=== PATIENT | female | born 2000 | race Caucasian/White ===

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

== ENCOUNTER 2022-01-19 00:01 | Emergency (ER) | payer OTHER ==
[~2022-01-19] VITALS: Ht 160 cm; Wt 81.8 kg
[2022-01-19 00:30] LABS: BASO # 0.1 10^3/uL (0.0-0.2); BASO % 0.4 % (0.0-1.0); EOS # 0.1 10^3/uL (0.0-0.5); EOS % 0.6 % (0.0-3.0); HEMATOCRIT 40.7 % (36.0-47.0); HEMOGLOBIN 13.7 g/dl (12.0-15.5); LYMPH # 3.9 10^3/uL (1.5-5.0); LYMPH % 29.8 % (24.0-44.0); MEAN CORPUSCULAR HEMOGLOBIN 31.3 pg (27.0-33.0); MEAN CORPUSCULAR HGB CONC 33.7 g/dl (32.0-36.5); MEAN CORPUSCULAR VOLUME 92.9 fl (80.0-96.0); MONO % 7.4 % (2.0-8.0); NEUTROPHILS % 61.6 % (36.0-66.0); PLATELET COUNT, AUTOMATED 277 10^3/uL (150-450); RED BLOOD COUNT 4.38 10^6/uL (4.00-5.40); WHITE BLOOD COUNT 12.9 10^3/uL (4.0-10.0)
[2022-01-19 00:59] LABS: BLOOD UREA NITROGEN 10 MG/DL (7-18); CALCIUM LEVEL 9.2 MG/DL (8.5-10.1); CARBON DIOXIDE LEVEL 27 MEQ/L (21-32); CHLORIDE LEVEL 105 MEQ/L (98-107); CREATININE FOR GFR 0.64 MG/DL (0.55-1.30); GLUCOSE, FASTING 95 MG/DL (70-100); POTASSIUM SERUM 4.2 MEQ/L (3.5-5.1); SODIUM LEVEL 137 MEQ/L (136-145)
[2022-01-19 01:12] LABS: HCG, SERUM QUALITATIVE NEGATIVE (NEGATIVE)
[2022-01-19 05:02] VITALS: BP 125/76
== END 2022-01-19 05:14 | disposition home or self-care (01) ==
LOC: M ED 00:01
DX: N83.202 Unspecified ovarian cyst, left side (principal)

== ENCOUNTER → 2022-03-03 | Outpatient (REF) | payer OTHER | LOC: M WUC 20:07 | PROVIDERS: ATTEND Physician Assistant | DX: R30.0 Dysuria (principal) ==

== ENCOUNTER → 2022-03-16 | Outpatient (CLI) | payer OTHER | LOC: M WUC 08:40 | DX: M79.641 Pain in right hand (principal) ==

== ENCOUNTER 2022-03-30 02:07 | Emergency (ER) | payer OTHER | END 2022-03-30 04:02 | disposition left against medical advice (07) | LOC: M ED 02:07 | DX: Z53.29 Procedure and treatment not carried out because of patient's decision for other reasons (principal) ==

== ENCOUNTER 2022-05-07 18:26 | Emergency (ER) | payer OTHER ==
[~2022-05-07] VITALS: Ht 160 cm; Wt 76.8 kg
[2022-05-07] MEDS ORDERED: AMOX875T2 (18:31)
[2022-05-07] MEDS ORDERED: KETOROLAC 30 MG/ML 1ML VIAL IV ONE (19:05)
[2022-05-07] MEDS ORDERED: NS 1,000 ML IV ONE (19:05)
[2022-05-07 19:25] LABS: BASO % 0.3 % (0.0-1.0); EOS # 0.1 10^3/uL (0.0-0.5); EOS % 0.6 % (0.0-3.0); HEMOGLOBIN 13.5 g/dl (12.0-15.5); LYMPH # 2.8 10^3/uL (1.5-5.0); LYMPH % 24.2 % (24.0-44.0); MEAN CORPUSCULAR HEMOGLOBIN 31.4 pg (27.0-33.0); MEAN CORPUSCULAR HGB CONC 33.8 g/dl (32.0-36.5); MONO % 8.7 % (2.0-8.0); NEUTROPHILS # 7.5 10^3/uL (1.5-8.5); NEUTROPHILS % 65.9 % (36.0-66.0); PLATELET COUNT, AUTOMATED 289 10^3/uL (150-450); WHITE BLOOD COUNT 11.4 10^3/uL (4.0-10.0)
[2022-05-07 20:01] LABS: BILIRUBIN,DIRECT 0.2 MG/DL (0.0-0.2); BILIRUBIN,TOTAL 0.8 MG/DL (0.2-1.0); TOTAL PROTEIN 7.9 GM/DL (6.4-8.2)
[2022-05-07 22:13] VITALS: BP 114/86
== END 2022-05-07 22:15 | disposition home or self-care (01) ==
LOC: M ED 18:26
DX: N83.202 Unspecified ovarian cyst, left side (principal)
CPT/HCPCS: 74176; 80047; 80076; 81001; 83690; 84702; 85025; 96361; 96374; 99284; J1885

== ENCOUNTER 2022-05-20 00:19 | Emergency (ER) | payer OTHER ==
[~2022-05-20] VITALS: Ht 160 cm; Wt 81.8 kg
[~2022-05-20 00:19] MED LIST changes: +AMOX875T2
[2022-05-20 00:20] VITALS: BP 137/95
== END 2022-05-20 01:20 | disposition left against medical advice (07) ==
LOC: M ED 00:19
DX: Z53.29 Procedure and treatment not carried out because of patient's decision for other reasons (principal)

== ENCOUNTER → 2022-06-29 | Outpatient (CLI) | payer OTHER | LOC: M WHC 13:55 | PROVIDERS: ATTEND Nurse Practitioner Family | DX: N83.202 Unspecified ovarian cyst, left side (principal) ==

== ENCOUNTER 2022-07-01 11:26 | Emergency (ER) | payer OTHER ==
[~2022-07-01] VITALS: Ht 160 cm; Wt 79.5 kg
[2022-07-01 16:26] VITALS: BP 133/75
== END 2022-07-01 16:26 | disposition home or self-care (01) ==
LOC: M ED 11:26
DX: R10.9 Unspecified abdominal pain (principal); Z79.899 Other long term (current) drug therapy; Z87.42 Personal history of other diseases of the female genital tract

== ENCOUNTER 2022-07-03 23:16 | Emergency (ER) | payer OTHER ==
[~2022-07-03] VITALS: Ht 160 cm; Wt 78.6 kg
[2022-07-03] MEDS ORDERED: birth control PO (23:36)
[2022-07-04] MEDS ORDERED: NS 1,000 ML IV ONE (03:30)
[2022-07-04 04:00] VITALS: BP 136/94
[2022-07-04] MEDS ORDERED: HOLTER MONITOR XX (04:48)
[2022-07-04] MEDS ORDERED: ONDA4TAB6 PO (04:48)
== END 2022-07-04 05:11 | disposition home or self-care (01) ==
LOC: M ED 23:16
DX: A08.4 Viral intestinal infection, unspecified (principal); R00.2 Palpitations; Z79.3 Long term (current) use of hormonal contraceptives

== ENCOUNTER → 2022-07-04 | Outpatient (CLI) | payer OTHER ==
[~2022-07-04] MED LIST changes: +HOLTER MONITOR XX; +ONDA4TAB6 PO; +birth control PO
== END ==
LOC: M EKG 16:01 → M LAB 16:01
PROVIDERS: ATTEND Emergency Medicine
DX: R00.2 Palpitations (principal)

== ENCOUNTER → 2022-07-30 | Outpatient (REF) | payer OTHER | LOC: M LAB REF 18:45 | PROVIDERS: ATTEND Internal Medicine | DX: J02.9 Acute pharyngitis, unspecified (principal) ==

== ENCOUNTER 2022-08-01 21:29 | Emergency (ER) | payer OTHER ==
[~2022-08-01] VITALS: Ht 160 cm; Wt 75.0 kg
[2022-08-01 21:30] VITALS: BP 145/87
== END 2022-08-02 00:40 | disposition left against medical advice (07) ==
LOC: M ED 21:29
DX: Z53.21 Procedure and treatment not carried out due to patient leaving prior to being seen by health care provider (principal)

== ENCOUNTER → 2022-08-17 | Outpatient (CLI) | payer OTHER ==
[2022-08-17 20:14] LABS: FREE T4 0.9 NG/DL (0.78-1.33); THYROID STIMULATING HORMONE 0.746 uIU/ML (0.463-3.98)
[2022-08-17 20:38] LABS: HEMOGLOBIN A1c 5.2 %
[2022-08-17 21:02] LABS: PROLACTIN 11.7 NG/ML
== END ==
LOC: M PLALAB 13:57
PROVIDERS: ATTEND Nurse Practitioner Family
DX: N93.9 Abnormal uterine and vaginal bleeding, unspecified (principal)

== ENCOUNTER 2022-09-12 23:22 | Emergency (ER) | payer OTHER ==
[~2022-09-12] VITALS: Ht 160 cm; Wt 75.0 kg
[2022-09-13] MEDS ORDERED: OMEP40CA4 PO (00:03)
[2022-09-13] MEDS ORDERED: MULT1TAB16 PO (00:03)
[2022-09-13 00:45] LABS: APPEARANCE, URINE MANUAL HAZY (CLEAR); BILIRUBIN, URINE MANUAL NEGATIVE (NEGATIVE); COLOR, URINE MANUAL YELLOW (YELLOW); GLUCOSE, URINE (UA) MANUAL NEGATIVE (NEGATIVE); KETONE, URINE MANUAL 1+ mg/dL (NEGATIVE); LEUKOCYTE ESTERASE, URINE MAN POSITIVE (NEGATIVE); NITRITE, URINE MANUAL NEGATIVE (NEGATIVE); PROTEIN, URINE MANUAL NEGATIVE (NEGATIVE); SPECIFIC GRAVITY,URINE MANUAL 1.025 (1.002-1.035); UROBILINOGEN, URINE MANUAL NORMAL (NORMAL)
[2022-09-13 00:46] LABS: BLOOD URINE MANUAL NEGATIVE (NEGATIVE)
[2022-09-13 00:56] LABS: WBC, URINE 15-20 /hpf (0-3)
[2022-09-13 00:57] LABS: BACTERIA, URINE SMALL AMOUNT; HYALINE CAST, URINE NONE SEEN /lpf (0-1); MUCUS, URINE MOD AMOUNT (NEGATIVE); SQUAMOUS EPITHELIAL CELL URINE MOD AMOUNT /hpf (SMALL AMT)
[2022-09-13 08:12] LABS: BASO # 0.1 10^3/uL (0.0-0.2); BASO % 0.5 % (0.0-1.0); EOS % 0.3 % (0.0-3.0); HEMATOCRIT 39.3 % (36.0-47.0); LYMPH # 3.5 10^3/uL (1.5-5.0); LYMPH % 28.8 % (24.0-44.0); MEAN CORPUSCULAR HEMOGLOBIN 30.6 pg (27.0-33.0); MEAN CORPUSCULAR HGB CONC 33.1 g/dl (32.0-36.5); MEAN CORPUSCULAR VOLUME 92.5 fl (80.0-96.0); MONO # 1.2 10^3/uL (0.0-0.8); MONO % 9.3 % (2.0-8.0); NEUTROPHILS # 7.5 10^3/uL (1.5-8.5); NEUTROPHILS % 60.9 % (36.0-66.0); PLATELET COUNT, AUTOMATED 270 10^3/uL (150-450); RED BLOOD COUNT 4.25 10^6/uL (4.00-5.40); WHITE BLOOD COUNT 12.3 10^3/uL (4.0-10.0)
[2022-09-13] MEDS ORDERED: cefTRIAXone SOD 1 GM in D5W MINI-BAG PLUS 50 ML IV ONE (08:25)
[2022-09-13 08:36] LABS: CHLORIDE LEVEL 105 MMOL/L (98-107); SODIUM LEVEL 141 MMOL/L (136-145)
[2022-09-13 08:37] LABS: ALBUMIN 4.1 G/DL (3.2-5.2)
[2022-09-13 08:42] LABS: BLOOD UREA NITROGEN 12 MG/DL (9-23); LIPASE 39 U/L (12-53)
[2022-09-13 08:43] LABS: ALKALINE PHOSPHATASE 77 U/L (46-116); CALCIUM LEVEL 9.3 MG/DL (8.5-10.1); GLUCOSE, FASTING 86 MG/DL (60-100)
[2022-09-13 08:44] LABS: ALT/SGPT 41 U/L (7.0-40); AST/SGOT 25 U/L (<34); BILIRUBIN,TOTAL 1.1 MG/DL (0.3-1.2); TOTAL PROTEIN 7.5 G/DL (5.7-8.2)
[2022-09-13 08:45] LABS: BILIRUBIN,DIRECT 0.4 MG/DL (<0.4); CREATININE FOR GFR 0.59 MG/DL (0.55-1.30)
[2022-09-13] MEDS ORDERED: ISOVUE-370 76% 100ML VIAL As Ordered ONE (08:55)
[2022-09-13 08:58] LABS: CARBON DIOXIDE LEVEL 25 MMOL/L (20-31); POTASSIUM SERUM 3.8 MMOL/L (3.5-5.1)
[2022-09-13 10:07] VITALS: BP 118/75
[2022-09-13] MEDS ORDERED: SULF1TAB23 PO (10:51)
== END 2022-09-13 11:17 | disposition home or self-care (01) ==
LOC: M ED 23:22
DX: N10 Acute pyelonephritis (principal); N39.0 Urinary tract infection, site not specified; E66.9 Obesity, unspecified; K21.9 Gastro-esophageal reflux disease without esophagitis; Z79.3 Long term (current) use of hormonal contraceptives
CPT/HCPCS: 74177; 80048; 80076; 81000; 81015; 83690; 84702; 85025; 96365; 96366; 99284; J0696

== ENCOUNTER 2022-09-24 13:00 | Emergency (ER) | payer OTHER ==
[~2022-09-24] VITALS: Ht 160 cm; Wt 72.0 kg
[~2022-09-24 13:00] MED LIST changes: +MULT1TAB16 PO; +OMEP40CA4 PO; +SULF1TAB23 PO
[2022-09-24 14:56] LABS: BASO % 0.2 % (0.0-1.0); EOS % 0.2 % (0.0-3.0); HEMOGLOBIN 13.2 g/dl (12.0-15.5); LYMPH # 2.7 10^3/uL (1.5-5.0); LYMPH % 21.6 % (24.0-44.0); MEAN CORPUSCULAR HEMOGLOBIN 30.4 pg (27.0-33.0); MEAN CORPUSCULAR VOLUME 92.2 fl (80.0-96.0); MONO # 0.8 10^3/uL (0.0-0.8); MONO % 6.4 % (2.0-8.0); NEUTROPHILS # 8.8 10^3/uL (1.5-8.5); NEUTROPHILS % 71.4 % (36.0-66.0); PLATELET COUNT, AUTOMATED 281 10^3/uL (150-450); RED BLOOD COUNT 4.34 10^6/uL (4.00-5.40); WHITE BLOOD COUNT 12.3 10^3/uL (4.0-10.0)
[2022-09-24 15:19] LABS: ALBUMIN 3.8 G/DL (3.2-5.2); BILIRUBIN,DIRECT 0.4 MG/DL (<0.4); TOTAL PROTEIN 7.3 G/DL (5.7-8.2)
[2022-09-24] MEDS ORDERED: ACETAMINOPHEN 325 MG TAB PO ONE (16:20)
[2022-09-24] MEDS ORDERED: NS 1,000 ML IV ONE (17:15)
[2022-09-24] MEDS ORDERED: ISOVUE-370 76% 100ML VIAL As Ordered ONE (17:17)
[2022-09-24] MEDS ORDERED: KETOROLAC 30 MG/ML 1ML VIAL IV ONE (19:00)
[2022-09-24 19:14] VITALS: BP 124/59
== END 2022-09-24 19:30 | disposition home or self-care (01) ==
LOC: M ED 13:00
DX: N83.291 Other ovarian cyst, right side (principal); Z79.3 Long term (current) use of hormonal contraceptives
CPT/HCPCS: 74177; 76830; 76856; 80047; 80076; 84702; 85025; 93976; 96361; 96374; 99284; J1885

== ENCOUNTER → 2022-09-28 | Outpatient (CLI) | payer OTHER | LOC: M WHC 14:35 | PROVIDERS: ATTEND Physician Assistant | DX: N83.202 Unspecified ovarian cyst, left side (principal) ==

== ENCOUNTER 2022-10-18 22:15 | Emergency (ER) | payer OTHER ==
[~2022-10-18] VITALS: Ht 160 cm; Wt 72.2 kg
[2022-10-19 02:25] VITALS: BP 121/63
== END 2022-10-19 02:28 | disposition home or self-care (01) ==
LOC: M ED 22:15
DX: S09.90XA Unspecified injury of head, initial encounter (principal); W22.8XXA Striking against or struck by other objects, initial encounter; Y92.019 Unspecified place in single-family (private) house as the place of occurrence of the external cause

== ENCOUNTER 2022-10-21 22:24 | Emergency (ER) | payer OTHER ==
[~2022-10-21] VITALS: Ht 160 cm; Wt 71.1 kg
[2022-10-22] MEDS ORDERED: ACETAMINOPHEN 500 MG TAB PO ONE (00:40)
[2022-10-22 02:10] VITALS: BP 119/68
[2022-10-22 04:06] LABS: RSV AMPLIFICATION NEGATIVE (NEGATIVE)
== END 2022-10-22 04:57 | disposition home or self-care (01) ==
LOC: M ED 22:24
DX: J06.9 Acute upper respiratory infection, unspecified (principal); R05.9 Cough, unspecified

== ENCOUNTER 2022-11-04 16:13 | Emergency (ER) | payer OTHER ==
[~2022-11-04] VITALS: Ht 160 cm; Wt 71.9 kg
[2022-11-04 18:56] LABS: BASO % 0.3 % (0.0-1.0); EOS % 0.3 % (0.0-3.0); HEMATOCRIT 39.1 % (36.0-47.0); HEMOGLOBIN 12.7 g/dl (12.0-15.5); LYMPH # 3.2 10^3/uL (1.5-5.0); LYMPH % 26.9 % (24.0-44.0); MEAN CORPUSCULAR HEMOGLOBIN 29.7 pg (27.0-33.0); MEAN CORPUSCULAR HGB CONC 32.5 g/dl (32.0-36.5); MEAN CORPUSCULAR VOLUME 91.6 fl (80.0-96.0); MONO # 0.6 10^3/uL (0.0-0.8); MONO % 5.2 % (2.0-8.0); NEUTROPHILS # 7.8 10^3/uL (1.5-8.5); PLATELET COUNT, AUTOMATED 348 10^3/uL (150-450); RED BLOOD COUNT 4.27 10^6/uL (4.00-5.40); WHITE BLOOD COUNT 11.7 10^3/uL (4.0-10.0)
[2022-11-04 19:13] LABS: BLOOD UREA NITROGEN 15 MG/DL (9-23); CALCIUM LEVEL 9.5 MG/DL (8.5-10.1); CARBON DIOXIDE LEVEL 23 MMOL/L (20-31); CHLORIDE LEVEL 104 MMOL/L (98-107); CK-MB VALUE MASS < 1.0 NG/ML (<3.6); CPK CREATINE PHOSPHOKINASE 39 U/L (34-145); CREATININE FOR GFR 0.54 MG/DL (0.55-1.30); GLUCOSE, FASTING 88 MG/DL (60-100); MB/CK RELATIVE INDEX 2.56 (< OR =4); POTASSIUM SERUM 4.3 MMOL/L (3.5-5.1); SODIUM LEVEL 135 MMOL/L (136-145)
[2022-11-04 19:15] LABS: FREE T4 1.08 NG/DL (0.83-1.43)
[2022-11-04 19:16] LABS: INR 0.88; PROTHROMBIN TIME 12.1 SECONDS (12.5-14.5); THYROID STIMULATING HORMONE 1.944 uIU/ML (0.48-4.17)
[2022-11-04 19:17] LABS: PARTIAL THROMBOPLASTIN TIME 27.4 SECONDS (24.8-34.2)
[2022-11-04 20:16] LABS: D-DIMER QUANT < 270 ng/ml (<500)
[2022-11-04 20:34] VITALS: BP 131/66
== END 2022-11-04 20:37 | disposition home or self-care (01) ==
LOC: M ED 16:13
DX: R00.2 Palpitations (principal); E66.9 Obesity, unspecified; F41.9 Anxiety disorder, unspecified; K21.9 Gastro-esophageal reflux disease without esophagitis; Z79.3 Long term (current) use of hormonal contraceptives; Z79.899 Other long term (current) drug therapy; Z87.42 Personal history of other diseases of the female genital tract; Z90.49 Acquired absence of other specified parts of digestive tract; Z82.49 Family history of ischemic heart disease and other diseases of the circulatory system

== ENCOUNTER 2022-11-09 01:19 | Emergency (ER) | payer OTHER ==
[~2022-11-09] VITALS: Ht 160 cm; Wt 75.9 kg
[2022-11-09] MEDS ORDERED: NS 1,000 ML IV ONE (11:35)
[2022-11-09 12:15] LABS: HEMATOCRIT 39.4 % (36.0-47.0); HEMOGLOBIN 13.1 g/dl (12.0-15.5); MEAN CORPUSCULAR HGB CONC 33.2 g/dl (32.0-36.5); MEAN CORPUSCULAR VOLUME 90.4 fl (80.0-96.0); PLATELET COUNT, AUTOMATED 373 10^3/uL (150-450); RED BLOOD COUNT 4.36 10^6/uL (4.00-5.40); WHITE BLOOD COUNT 12.3 10^3/uL (4.0-10.0)
[2022-11-09 12:33] LABS: ATYPICAL LYMPH 8 % (0-5); LYMPHOCYTES 36 % (16-44); MONOCYTES 4 % (0-5); NEUTROPHILS 52 % (28-66)
[2022-11-09 12:34] LABS: ANISOCYTOSIS 1+
[2022-11-09 12:35] LABS: PLATELET ESTIMATE NORMAL (NORMAL)
[2022-11-09 12:38] LABS: FREE T4 1.26 NG/DL (0.83-1.43); THYROID STIMULATING HORMONE 1.335 uIU/ML (0.48-4.17)
[2022-11-09 12:40] LABS: RSV AMPLIFICATION NEGATIVE (NEGATIVE)
[2022-11-09 13:53] LABS: MONO SCRN NEGATIVE (NEGATIVE)
[2022-11-09] MEDS ORDERED: AMOX875T2 PO (14:33)
[2022-11-09] MEDS ORDERED: MUCI600T31 PO (14:36)
[2022-11-09 14:45] VITALS: BP 126/82
== END 2022-11-09 14:45 | disposition home or self-care (01) ==
LOC: M ED 01:19
DX: R07.89 Other chest pain (principal); J01.90 Acute sinusitis, unspecified; F41.9 Anxiety disorder, unspecified; J45.909 Unspecified asthma, uncomplicated; K21.9 Gastro-esophageal reflux disease without esophagitis; N83.209 Unspecified ovarian cyst, unspecified side; Z90.49 Acquired absence of other specified parts of digestive tract; Z82.49 Family history of ischemic heart disease and other diseases of the circulatory system; R07.9 Chest pain, unspecified; Z79.899 Other long term (current) drug therapy

== ENCOUNTER 2022-11-20 07:33 | Emergency (ER) | payer OTHER ==
[~2022-11-20] VITALS: Ht 160 cm; Wt 71.7 kg
[~2022-11-20 07:33] MED LIST changes: +AMOX875T2 PO; +MUCI600T31 PO
[2022-11-20 08:08] LABS: HEMATOCRIT 38.4 % (36.0-47.0); HEMOGLOBIN 12.5 g/dl (12.0-15.5); MEAN CORPUSCULAR HGB CONC 32.6 g/dl (32.0-36.5); MEAN CORPUSCULAR VOLUME 92.3 fl (80.0-96.0); PLATELET COUNT, AUTOMATED 293 10^3/uL (150-450); RED BLOOD COUNT 4.16 10^6/uL (4.00-5.40); WHITE BLOOD COUNT 15.5 10^3/uL (4.0-10.0)
[2022-11-20 08:34] LABS: LIPASE 64 U/L (12-53)
[2022-11-20 08:37] LABS: ALBUMIN 3.8 G/DL (3.2-5.2); ALKALINE PHOSPHATASE 91 U/L (46-116); ALT/SGPT 45 U/L (7.0-40); AST/SGOT 30 U/L (<34); BILIRUBIN,DIRECT 0.2 MG/DL (<0.4); BILIRUBIN,TOTAL 0.5 MG/DL (0.3-1.2); BLOOD UREA NITROGEN 12 MG/DL (9-23); CALCIUM LEVEL 9.3 MG/DL (8.5-10.1); CARBON DIOXIDE LEVEL 22 MMOL/L (20-31); CHLORIDE LEVEL 104 MMOL/L (98-107); CREATININE FOR GFR 0.56 MG/DL (0.55-1.30); GLUCOSE, FASTING 86 MG/DL (60-100); POTASSIUM SERUM 3.8 MMOL/L (3.5-5.1); SODIUM LEVEL 137 MMOL/L (136-145); TOTAL PROTEIN 7.5 G/DL (5.7-8.2)
[2022-11-20 08:38] LABS: ATYPICAL LYMPH 3 % (0-5); LYMPHOCYTES 27 % (16-44); MONOCYTES 6 % (0-5); NEUTROPHILS 64 % (28-66)
[2022-11-20 08:42] LABS: PLATELET ESTIMATE NORMAL (NORMAL)
[2022-11-20 08:48] LABS: HCG, SERUM QUALITATIVE NEGATIVE (NEGATIVE)
[2022-11-20] MEDS ORDERED: NS 1,000 ML IV ONE (11:25)
[2022-11-20] MEDS ORDERED: KETOROLAC 30 MG/ML 1ML VIAL IV ONE (11:25)
[2022-11-20] MEDS ORDERED: ISOVUE-370 76% 100ML VIAL As Ordered ONE (11:35)
[2022-11-20 14:40] VITALS: BP 124/76
[2022-11-20] MEDS ORDERED: IBUP80TA PO (14:40)
== END 2022-11-20 14:59 | disposition home or self-care (01) ==
LOC: M ED 07:33
DX: R10.9 Unspecified abdominal pain (principal); K76.0 Fatty (change of) liver, not elsewhere classified; N83.11 Corpus luteum cyst of right ovary; Z90.49 Acquired absence of other specified parts of digestive tract; K21.9 Gastro-esophageal reflux disease without esophagitis; F41.9 Anxiety disorder, unspecified; Z79.899 Other long term (current) drug therapy
CPT/HCPCS: 74177; 76830; 76856; 80048; 80076; 81000; 81015; 83690; 84703; 85025; 93976; 96361; 96374; 99284; J1885

== ENCOUNTER 2022-12-07 15:50 | Emergency (ER) | payer OTHER ==
[~2022-12-07] VITALS: Ht 160 cm; Wt 67.6 kg
[~2022-12-07 15:50] MED LIST changes: +IBUP80TA PO
[2022-12-07] MEDS ORDERED: ESTA0.25 (16:01)
[2022-12-07] MEDS ORDERED: TRAZ-252 (16:01)
[2022-12-07 16:53] LABS: BASO % 0.6 % (0.0-1.0); EOS # 0.1 10^3/uL (0.0-0.5); EOS % 0.9 % (0.0-3.0); HEMATOCRIT 37.6 % (36.0-47.0); HEMOGLOBIN 12.1 g/dl (12.0-15.5); LYMPH # 1.8 10^3/uL (1.5-5.0); LYMPH % 32.5 % (24.0-44.0); MEAN CORPUSCULAR HEMOGLOBIN 30.1 pg (27.0-33.0); MEAN CORPUSCULAR HGB CONC 32.2 g/dl (32.0-36.5); MEAN CORPUSCULAR VOLUME 93.5 fl (80.0-96.0); MONO # 0.6 10^3/uL (0.0-0.8); MONO % 11.6 % (2.0-8.0); NEUTROPHILS % 54.4 % (36.0-66.0); PLATELET COUNT, AUTOMATED 275 10^3/uL (150-450); RED BLOOD COUNT 4.02 10^6/uL (4.00-5.40); WHITE BLOOD COUNT 5.5 10^3/uL (4.0-10.0)
[2022-12-07 17:15] LABS: ALBUMIN 3.7 G/DL (3.2-5.2); ALKALINE PHOSPHATASE 82 U/L (46-116); CARBON DIOXIDE LEVEL 24 MMOL/L (20-31); CHLORIDE LEVEL 105 MMOL/L (98-107); POTASSIUM SERUM 3.4 MMOL/L (3.5-5.1); SODIUM LEVEL 139 MMOL/L (136-145)
[2022-12-07 17:16] LABS: LIPASE 33 U/L (12-53)
[2022-12-07] MEDS ORDERED: NS 1,000 ML IV ONE (17:45)
[2022-12-07] MEDS ORDERED: ONDANSETRON 4MG 2ML VIAL IV ONE (17:45)
[2022-12-07] MEDS ORDERED: FAMOTIDINE 20MG/2ML VIAL IVP ONE (17:45)
[2022-12-07 18:23] LABS: ALT/SGPT 130 U/L (7.0-40); AST/SGOT 83 U/L (<34); BILIRUBIN,DIRECT 0.4 MG/DL (<0.4); BLOOD UREA NITROGEN 10 MG/DL (9-23); CREATININE FOR GFR 0.54 MG/DL (0.55-1.30); GLUCOSE, FASTING 84 MG/DL (60-100); TOTAL PROTEIN 7.6 G/DL (5.7-8.2)
[2022-12-07 18:36] LABS: HCG, SERUM QUALITATIVE NEGATIVE (NEGATIVE)
[2022-12-07] MEDS ORDERED: ISOVUE-370 76% 100ML VIAL As Ordered ONE (18:55)
[2022-12-07] MEDS ORDERED: PANT40TA29 PO (20:25)
[2022-12-07] MEDS ORDERED: ONDA4TAB6 PO (20:25)
[2022-12-07 20:42] VITALS: BP 136/81
== END 2022-12-07 20:45 | disposition home or self-care (01) ==
LOC: M ED 15:50
DX: K21.9 Gastro-esophageal reflux disease without esophagitis (principal); R79.89 Other specified abnormal findings of blood chemistry; R11.2 Nausea with vomiting, unspecified; Z79.899 Other long term (current) drug therapy
CPT/HCPCS: 74177; 80048; 80076; 83690; 84703; 85025; 96374; 96375; 99284; J2405; S0028

== ENCOUNTER 2022-12-13 23:35 | Emergency (ER) | payer OTHER ==
[~2022-12-13] VITALS: Ht 160 cm; Wt 67.8 kg
[~2022-12-13 23:35] MED LIST changes: +ESTA0.25; +PANT40TA29 PO; +TRAZ-252
[2022-12-14 01:26] LABS: BASO % 0.3 % (0.0-1.0); EOS # 0.1 10^3/uL (0.0-0.5); EOS % 0.5 % (0.0-3.0); HEMATOCRIT 43.2 % (36.0-47.0); HEMOGLOBIN 13.7 g/dl (12.0-15.5); LYMPH # 2.7 10^3/uL (1.5-5.0); MEAN CORPUSCULAR HEMOGLOBIN 29.7 pg (27.0-33.0); MEAN CORPUSCULAR HGB CONC 31.7 g/dl (32.0-36.5); MEAN CORPUSCULAR VOLUME 93.5 fl (80.0-96.0); MONO # 0.7 10^3/uL (0.0-0.8); MONO % 4.6 % (2.0-8.0); NEUTROPHILS # 11.4 10^3/uL (1.5-8.5); NEUTROPHILS % 76.3 % (36.0-66.0); PLATELET COUNT, AUTOMATED 333 10^3/uL (150-450); RED BLOOD COUNT 4.62 10^6/uL (4.00-5.40); WHITE BLOOD COUNT 14.9 10^3/uL (4.0-10.0)
[2022-12-14 01:41] LABS: LIPASE 61 U/L (12-53)
[2022-12-14 01:42] LABS: HCG, SERUM QUANTITATIVE < 2.6 MIU/ML (<4.2)
[2022-12-14 01:43] LABS: ALBUMIN 4.4 G/DL (3.2-5.2); ALKALINE PHOSPHATASE 83 U/L (46-116); ALT/SGPT 106 U/L (7.0-40); AST/SGOT 49 U/L (<34); BILIRUBIN,DIRECT 0.3 MG/DL (<0.4); BILIRUBIN,TOTAL 0.8 MG/DL (0.3-1.2); BLOOD UREA NITROGEN 16 MG/DL (9-23); CALCIUM LEVEL 9.2 MG/DL (8.5-10.1); CARBON DIOXIDE LEVEL 26 MMOL/L (20-31); CHLORIDE LEVEL 105 MMOL/L (98-107); CREATININE FOR GFR 0.57 MG/DL (0.55-1.30); GLUCOSE, FASTING 81 MG/DL (60-100); POTASSIUM SERUM 4.4 MMOL/L (3.5-5.1); SODIUM LEVEL 138 MMOL/L (136-145); TOTAL PROTEIN 8.3 G/DL (5.7-8.2)
[2022-12-14] MEDS ORDERED: NS 1,000 ML IV ONE (09:15)
[2022-12-14] MEDS ORDERED: ISOVUE-370 76% 100ML VIAL As Ordered ONE (09:27)
[2022-12-14 11:21] VITALS: BP 118/86
== END 2022-12-14 11:28 | disposition home or self-care (01) ==
LOC: M ED 23:35
DX: R10.30 Lower abdominal pain, unspecified (principal); Z79.3 Long term (current) use of hormonal contraceptives; Z79.899 Other long term (current) drug therapy
CPT/HCPCS: 74177; 80048; 80076; 81001; 83690; 84702; 85025; 96360; 99284; Q9967

== ENCOUNTER 2023-01-03 23:48 | Emergency (ER) | payer OTHER ==
[~2023-01-03] VITALS: Ht 160 cm; Wt 68.1 kg
[2023-01-03 23:49] VITALS: BP 127/80
[2023-01-04] MEDS ORDERED: metroNIDAZOLE (FLAGYL) 500MG TABLET PO ONE (02:15)
[2023-01-04] MEDS ORDERED: METR0.7526 TOP (02:15)
== END 2023-01-04 02:31 | disposition home or self-care (01) ==
LOC: M ED 23:48
DX: N76.0 Acute vaginitis (principal); K21.9 Gastro-esophageal reflux disease without esophagitis; N83.209 Unspecified ovarian cyst, unspecified side; K76.9 Liver disease, unspecified; Z79.899 Other long term (current) drug therapy

== ENCOUNTER 2023-01-08 00:47 | Emergency (ER) | payer OTHER ==
[~2023-01-08 00:47] MED LIST changes: +METR0.7526 TOP
[2023-01-08 02:02] LABS: BASO % 0.3 % (0.0-1.0); EOS # 0.1 10^3/uL (0.0-0.5); EOS % 0.7 % (0.0-3.0); HEMATOCRIT 35.1 % (36.0-47.0); HEMOGLOBIN 11.6 g/dl (12.0-15.5); LYMPH % 32.1 % (24.0-44.0); MEAN CORPUSCULAR HEMOGLOBIN 30.9 pg (27.0-33.0); MEAN CORPUSCULAR VOLUME 93.4 fl (80.0-96.0); MONO # 0.8 10^3/uL (0.0-0.8); MONO % 6.7 % (2.0-8.0); NEUTROPHILS # 7.4 10^3/uL (1.5-8.5); NEUTROPHILS % 59.9 % (36.0-66.0); PLATELET COUNT, AUTOMATED 249 10^3/uL (150-450); RED BLOOD COUNT 3.76 10^6/uL (4.00-5.40); WHITE BLOOD COUNT 12.3 10^3/uL (4.0-10.0)
[2023-01-08 02:25] LABS: LIPASE 52 U/L (12-53)
[2023-01-08 02:49] LABS: ALBUMIN 3.7 G/DL (3.2-5.2); ALKALINE PHOSPHATASE 75 U/L (46-116); ALT/SGPT 45 U/L (7.0-40); AST/SGOT 24 U/L (<34); BILIRUBIN,TOTAL 0.5 MG/DL (0.3-1.2); BLOOD UREA NITROGEN 11 MG/DL (9-23); CALCIUM LEVEL 8.5 MG/DL (8.5-10.1); CARBON DIOXIDE LEVEL 24 MMOL/L (20-31); CHLORIDE LEVEL 107 MMOL/L (98-107); CREATININE FOR GFR 0.58 MG/DL (0.55-1.30); GLUCOSE, FASTING 99 MG/DL (60-100); POTASSIUM SERUM 4.3 MMOL/L (3.5-5.1); SODIUM LEVEL 137 MMOL/L (136-145)
[2023-01-08 03:20] LABS: HCG, SERUM QUALITATIVE NEGATIVE (NEGATIVE)
[2023-01-08 03:48] LABS: GC DNA AMPLIFICATION NEGATIVE (NEGATIVE)
[2023-01-08] MEDS ORDERED: KETOROLAC 60MG 2ML VIAL IM ONE (05:00)
[2023-01-08 06:15] VITALS: BP 118/65
== END 2023-01-08 07:03 | disposition home or self-care (01) ==
LOC: M ED 00:47
DX: R10.2 Pelvic and perineal pain (principal); K21.9 Gastro-esophageal reflux disease without esophagitis
CPT/HCPCS: 76856; 80053; 81001; 83690; 84703; 85025; 87661; 87810; 87850; 93976; 96372; 99284; J1885

== ENCOUNTER → 2023-01-24 | Outpatient (CLI) | payer OTHER | LOC: M WHC 10:34 | PROVIDERS: ATTEND Nurse Practitioner Family | DX: N83.201 Unspecified ovarian cyst, right side (principal) ==

== ENCOUNTER → 2023-02-08 | Outpatient (CLI) | payer OTHER ==
[~2023-02-08] MED LIST changes: +MEDR4PAK PO
== END ==
LOC: M WUC 12:17
PROVIDERS: ATTEND Student in an Organized Health Care Education/Training Program
DX: M25.531 Pain in right wrist (principal)

== ENCOUNTER 2023-02-09 19:02 | Emergency (ER) | payer OTHER ==
[2023-02-09 19:02] VITALS: BP 134/90
[~2023-02-09 19:02] MED LIST changes: -MEDR4PAK PO
[2023-02-09] MEDS ORDERED: IBUP80TA PO (19:36)
[2023-02-09] MEDS ORDERED: MEDR4PAK PO (19:52)
== END 2023-02-09 19:56 | disposition home or self-care (01) ==
LOC: M ED 19:02
DX: M25.531 Pain in right wrist (principal); Z79.3 Long term (current) use of hormonal contraceptives

== ENCOUNTER → 2023-04-16 | Outpatient (REF) | payer OTHER ==
[~2023-04-16] MED LIST changes: +MEDR4PAK PO
== END ==
LOC: M WUC 17:46
PROVIDERS: ATTEND Student in an Organized Health Care Education/Training Program
DX: R30.0 Dysuria (principal)

== ENCOUNTER → 2023-05-29 | Outpatient (CLI) | payer OTHER | LOC: M WUC 14:26 | PROVIDERS: ATTEND Nurse Practitioner Family | DX: M25.532 Pain in left wrist (principal) ==

== ENCOUNTER → 2023-08-02 | Outpatient (REF) | payer OTHER ==
[2023-08-02 18:19] LABS: GC DNA AMPLIFICATION NEGATIVE (NEGATIVE)
== END ==
LOC: M LAB REF 16:10
PROVIDERS: ATTEND Nurse Practitioner Family
DX: R30.0 Dysuria (principal); Z11.3 Encounter for screening for infections with a predominantly sexual mode of transmission

== ENCOUNTER → 2023-09-22 | Outpatient (REF) | payer OTHER ==
[2023-09-22 20:28] LABS: CHLAMYDIA DNA AMPLIFICATION NEGATIVE (NEGATIVE); GC DNA AMPLIFICATION NEGATIVE (NEGATIVE)
== END ==
LOC: M LAB REF 16:35
PROVIDERS: ATTEND Physician Assistant
DX: R30.0 Dysuria (principal)

== ENCOUNTER → 2024-05-31 | Outpatient (REF) | payer OTHER ==
[~2024-05-31] MED LIST changes: +ONDA-282; +ONDA-282 PO; -ONDA4TAB6; -ONDA4TAB6 PO
[2024-05-31 20:49] LABS: RSV AMPLIFICATION NEGATIVE (NEGATIVE)
== END ==
LOC: M LAB REF 19:22
PROVIDERS: ATTEND Physician Assistant
DX: B34.9 Viral infection, unspecified (principal)